=== PATIENT | female | born 1965 | race Caucasian/White ===

== ENCOUNTER 2019-11-23 07:58 | Day surgery (SDC) | payer OTHER, SELFPAY ==
[~2019-11-23] VITALS: Ht 162.6 cm; Wt 77.1 kg
[2019-11-23] MEDS ORDERED: diphenhydrAMINE 50 MG/ML VIAL ONE (09:18)
[2019-11-23] MEDS ORDERED: fentaNYL citrate 0.05 MG/ML VIAL ONE (09:18)
[2019-11-23] MEDS ORDERED: MIDAZOLAM 5 MG/5 ML VIAL ONE (09:18)
[2019-11-23] MEDS: MIDAZOLAM 2 MG/2 ML VIAL IVP ONE (09:21)
[2019-11-23] MEDS: fentaNYL citrate 0.05 MG/ML VIAL IVP ONE (09:22)
[2019-11-23] MEDS: LIDOCAINE 2% 100 MG/5 ML UJET TP ONE (09:26)
== END 2019-11-23 10:40 | disposition home or self-care (01) ==
LOC: MDS 07:58 → MMU 08:00 → MDS 10:40
PROVIDERS: ATTEND Internal Medicine Gastroenterology
DX: Z12.11 Encounter for screening for malignant neoplasm of colon (principal); K63.5 Polyp of colon; K57.30 Diverticulosis of large intestine without perforation or abscess without bleeding; Z80.0 Family history of malignant neoplasm of digestive organs; Z79.899 Other long term (current) drug therapy; Z98.890 Other specified postprocedural states; E78.5 Hyperlipidemia, unspecified; Z98.82 Breast implant status; Z20.828 Contact with and (suspected) exposure to other viral communicable diseases
CPT/HCPCS: 45380; 45385; 81025; J2250; J3010; U0003; J1200